=== PATIENT | male | born 1965 | race Caucasian/White ===

== ENCOUNTER 2018-01-17 10:11 | Outpatient (CLI) | END 2018-01-17 10:12 | disposition home or self-care (01) | LOC: FCC-LAB 10:11 | PROVIDERS: ATTEND General Practice | DX: Z79.899 Other long term (current) drug therapy (principal); Z12.5 Encounter for screening for malignant neoplasm of prostate | CPT/HCPCS: 36415; 80053; 80061; 81001; 84153; 85025 ==

== ENCOUNTER 2018-06-06 14:04 | Outpatient (CLI) | END 2018-06-06 14:05 | disposition home or self-care (01) | LOC: FCC-LAB 14:04 | PROVIDERS: ATTEND General Practice | DX: F32.9 Major depressive disorder, single episode, unspecified (principal); F41.9 Anxiety disorder, unspecified; I10 Essential (primary) hypertension; Z72.0 Tobacco use; Z79.899 Other long term (current) drug therapy | CPT/HCPCS: 36415; 80053; 80061; 81001; 85025 ==

== ENCOUNTER 2018-10-29 10:51 | Outpatient (CLI) | payer OTHER ==
[2018-10-20 09:02] VITALS: BMI 13.4
== END 2018-10-29 10:52 | disposition home or self-care (01) ==
LOC: RHC-LAB 10:51
PROVIDERS: ATTEND General Practice
DX: R06.2 Wheezing (principal); R05 Cough
CPT/HCPCS: 36415; 86710